=== PATIENT | female | born 1990 | race African-American/Black ===

== ENCOUNTER 2016-04-09 02:53 | Emergency (ER) | payer SELFPAY ==
[~2016-04-09] VITALS: Ht 170.2 cm; Wt 68.0 kg
[2016-04-09] MEDS ORDERED: IV NORMAL SALINE 1000ML BAG 1,000 ML IV SCH (03:30)
[2016-04-09] MEDS ORDERED: methylPREDNISolone SOD SUCC PF 125 MG/2 ML VIAL. IV ONE (03:30)
[2016-04-09] MEDS ORDERED: FAMOTIDINE 20 MG/2 ML VIAL IVP ONE (03:30)
[2016-04-09 03:55] LABS: BASO # 0.1 x10^3/uL (0.0-0.2); BASO % 0 % (0-3); EOS % 0 % (0-3); HEMATOCRIT 46.7 % (36.0-47.0); HEMOGLOBIN 15.7 g/dL (12.0-15.5); LYMPH # 2.6 x10^3/uL (1.0-4.8); LYMPH % 21 % (24-48); MEAN CORPUSCULAR HEMOGLOBIN 31 pg (25-35); MEAN CORPUSCULAR HGB CONC 34 g/dL (31-37); MEAN CORPUSCULAR VOLUME 92 fL (79-100); MONO % 6 % (0-9); NEUT % 73 % (31-73); PLATELET COUNT 224 x10^3/uL (140-400); RED BLOOD COUNT 5.07 x10^6/uL (3.50-5.40); RED CELL DISTRIBUTION WIDTH 16.4 % (11.5-14.5); WHITE BLOOD COUNT 12.4 x10^3/uL (4.0-11.0)
[2016-04-09 04:07] LABS: CALCIUM 9.4 mg/dL (8.5-10.1); CREATININE 0.8 mg/dL (0.6-1.0); GFR 88.1; POTASSIUM 3.2 mmol/L (3.5-5.1)
--- NOTE | 2016-04-09 04:13 | PHYS DOC ---
Past Medical History Past Medical History: Other Additional Past Medical Histor: SLE, vocal cord paralysis Past Surgical History: No Surgical History Additional Past Surgical Histo: 3 vocal cord sx Alcohol Use: Occasionally Drug Use: Marijuana Adult General Chief Complaint Chief Complaint: ALLERGIC REACTION HPI HPI Patient is a 25 year old female who presents with with swelling, throat swelling, and difficulty breathing that started shortly prior to arrival. She woke with these symptoms. She has lupus and has intermittent swelling of her face and throat when she is off steroids. She is supposed be on 5 mg of prednisone chronically for lupus symptoms of joint pains and swelling, but she takes extra and ran out of her medication 3 days ago. She denies history of angioedema. She denies chest pain, fever or chills, nausea or vomiting, diarrhea , dysuria. She arrived by EMS and was given epinephrine IM, Benadryl IV, and given nebulized albuterol. She states her symptoms are slightly improving after these medications, but steroids are what usually works. She follows with a graduate assistant athletic trainer at [facility]. Review of Systems Review of Systems Constitutional: Denies fever or chills [] Eyes: Denies change in visual acuity, redness, or eye pain [] HENT: Denies nasal congestion or sore throat [] Respiratory: Denies cough [] Cardiovascular: No additional information not addressed in HPI [] GI: Denies abdominal pain, nausea, vomiting, bloody stools or diarrhea [] : Denies dysuria or hematuria [] Musculoskeletal: Denies back pain or joint pain [] Integument: Denies rash or skin lesions [] Neurologic: Denies headache, focal weakness or sensory changes [] Endocrine: Denies polyuria or polydipsia [] Current Medications Current Medications Current Medications Medications (Trade) Dose Ordered Sig/Adrian Start Time Stop Time Status Last Admin Dose Admin Famotidine 20 mg 20 mg 1X ONCE 04/09/16 03:30 04/09/16 03:31 DC 04/09/16 03:23 20 MG Fentanyl Citrate (Fentanyl 2ml Vial) 50 mcg 1X ONCE 04/09/16 04:15 04/09/16 04:47 DC 04/09/16 04:41 50 MCG Methylprednisolone Sodium Succinate (Solu-Medrol 125mg Vial) 125 mg 1X ONCE 04/09/16 03:30 04/09/16 03:31 DC 04/09/16 03:23 125 MG Sodium Chloride (Iv Sodium Chloride 0.9% 1000ml Bag) 1,000 ml @ 1,000 mls/hr Q1H 04/09/16 03:30 04/09/16 04:29 DC 04/09/16 03:30 1,000 MLS/HR Allergies Allergies Allergies Coded Allergies Type Severity Reaction Last Updated Verified acetaminophen Allergy Unknown 04/09/16 Yes ibuprofen Allergy Unknown 04/09/16 Yes Physical Exam Physical Exam Constitutional: Well developed, well nourished, no acute distress, non-toxic appearance. [] HENT: Normocephalic, atraumatic, bilateral external ears normal, oropharynx moist, no oral exudates, nose normal. Moderate upper lip swelling and minimal pharyngeal swelling. Minimally hoarse voice. [] Eyes: PERRLA, EOMI. [] Neck: Normal range of motion, no tenderness, supple, no stridor. [] Cardiovascular: Regular tachycardia [] Lungs & Thorax: Bilateral breath sounds clear to auscultation [] Abdomen: Bowel sounds normal, soft, no tenderness. [] Skin: Warm, dry, no erythema, no rash. [] Back: Normal range of motion. [] Extremities: ROM intact, no edema. [] Neurologic: Alert and oriented X 3, normal motor function, normal sensory function, no focal deficits noted. [] Psychologic: Affect normal, judgement normal, mood normal. [] Current Patient Data Vital Signs Vital Signs Date Time Temp Pulse Resp B/P Pulse Ox O2 Delivery O2 Flow Rate FiO2 04/09/16 04:41 24 04/09/16 03:02 98.2 122 137/68 97 Room Air 98.2 Lab Values Laboratory Tests Test 04/09/16 03:30 White Blood Count 12.4x10^3/uL (4.0-11.0) H Red Blood Count 5.07x10^6/uL (3.50-5.40) Hemoglobin 15.7g/dL (12.0-15.5) H Hematocrit 46.7% (36.0-47.0) Mean Corpuscular Volume 92fL (79-100) Mean Corpuscular Hemoglobin 31pg (25-35) Mean Corpuscular Hemoglobin Concent 34g/dL (31-37) Red Cell Distribution Width 16.4% (11.5-14.5) H Platelet Count 224x10^3/uL (140-400) Neutrophils (%) (Auto) 73% (31-73) Lymphocytes (%) (Auto) 21% (24-48) L Monocytes (%) (Auto) 6% (0-9) Eosinophils (%) (Auto) 0% (0-3) Basophils (%) (Auto) 0% (0-3) Neutrophils # (Auto) 9.0x10^3uL (1.8-7.7) H Lymphocytes # (Auto) 2.6x10^3/uL (1.0-4.8) Monocytes # (Auto) 0.8x10^3/uL (0.0-1.1) Eosinophils # (Auto) 0.0x10^3/uL (0.0-0.7) Basophils # (Auto) 0.1x10^3/uL (0.0-0.2) Sodium Level 139mmol/L (136-145) Potassium Level 3.2mmol/L (3.5-5.1) L Chloride Level 100mmol/L (98-107) Carbon Dioxide Level 25mmol/L (21-32) Anion Gap 14 (6-14) Blood Urea Nitrogen 11mg/dL (7-20) Creatinine 0.8mg/dL (0.6-1.0) Estimated GFR (Cockcroft-Gault) 88.1 Glucose Level 148mg/dL (70-99) H Calcium Level 9.4mg/dL (8.5-10.1) Laboratory Tests 04/09/16 03:30 Laboratory Tests 04/09/16 03:30 Course & Med Decision Making Course & Med Decision Making Pertinent Labs and Imaging studies reviewed. (See chart for details) She was given medications for possible anaphylaxis, angioedema, versus lupus swelling. She was given pain medicine for joint pains. Her symptoms improved and she felt her breathing and facial swelling or back to baseline. Will place on steroid taper for home. Encouraged follow-up with graduate assistant athletic trainer and primary care doctor; she has an appointment in 3 days. Return precautions given. She understands and agrees with plan. Dragon Disclaimer Dragon Disclaimer This electronic medical record was generated, in whole or in part, using a voice recognition dictation system. Departure Departure Impression: Primary Impression: Swelling of upper lip Additional Impressions: Throat swelling Lupus (systemic lupus erythematosus) Disposition: 01 HOME, SELF-CARE Condition: STABLE Patient Instructions: Lupus Additional Instructions: Take prednisone taper to help with swelling. Follow-up with your graduate assistant athletic trainer. Return for any concerns. Scripts Prednisone 10 Mg [id number] Mg PO see instructions #55 TAB Take 50 mg (5 pills) daily for 5 days, then take 40 mg (4 pills) daily for 4 days, then take 30 mg (3 pills) daily for 3 days, then take 20 mg (2 pills) daily for 2 days, then take 10 mg on last day. Prov:Jovanni GRIMES MD 04/09/16 Problem Qualifiers Jovanni GRIMES MD Apr 09, 2016 04:13
[2016-04-09] MEDS ORDERED: FENTANYL PF 100 MCG/2 ML VIAL. IV ONE (04:15)
[2016-04-09] MEDS ORDERED: PRED-220 PO (04:56)
[2016-04-09 05:00] VITALS: BP 122/64
== END 2016-04-09 05:00 | disposition home or self-care (01) ==
LOC: ER 02:53
DX: R22.1 Localized swelling, mass and lump, neck (principal); M32.9 Systemic lupus erythematosus, unspecified; R22.0 Localized swelling, mass and lump, head; F12.10 Cannabis abuse, uncomplicated; J38.00 Paralysis of vocal cords and larynx, unspecified; Z98.890 Other specified postprocedural states; Z88.6 Allergy status to analgesic agent
CPT/HCPCS: 36415; 80048; 85027; 96361; 96374; 96375; 99284; J2930; J3010; J7030; S0028